=== PATIENT | female | born 1955 | race Caucasian/White ===

== ENCOUNTER 2016-08-31 18:33 | Emergency (ER) | payer OTHER ==
[~2016-08-31] VITALS: Ht 157.5 cm; Wt 57.5 kg
[2016-08-31 19:30] VITALS: Ht 157.5 cm; Wt 57.5 kg
[2016-08-31] MEDS ORDERED: ACYC800T57 PO (23:40)
[2016-08-31] MEDS ORDERED: GABA100C14 PO (23:40)
[2016-08-31] MEDS ORDERED: HYDR-906 PO (23:40)
[2016-08-31 23:54] VITALS: BP 118/73; PULSE 69; RESP 18; TEMP 98.6
--- NOTE | 2016-09-01 01:41 | ERD ---
ER Documentation Chief Complaint Date/Time DATE: 09/01/16 TIME: 01:33 Chief Complaint low back pain x 5 days HPI 61-year-old female is complaining of pain in the lower back and right lower abdomen 5 days. Describes the pain as burning and tingling type of sensation on the skin. Her clothing also makes her feel uncomfortable. She also has some nausea but no vomiting. Patient stated that she had shingles 5 years ago. This feels just like the pain she had with shingles, and in the same location. Denies fever or chills. Denies injuries. She has not taken any medications for pain at home. ROS All systems reviewed and are negative except as per history of present illness. Medications Home Meds Active Scripts Hydrocodone/Acetaminophen ([place] 5-325 Tablet) 1 Each Tablet, 1 TAB PO Q6H Y for SEVERE PAIN LEVEL 7-10, #5 TAB Prov:MARIJA GONZALEZ. SCHEDULING CLERK 08/31/16 Gabapentin* (Gabapentin*) 100 Mg Capsule, 100 MG PO TID, #30 CAP Prov:MARIJA GONZALEZ. SCHEDULING CLERK 08/31/16 Acyclovir* (Zovirax*) 800 Mg Tablet, 800 MG PO 5 TIMES DAILY for 7 Days, TAB Prov:MARIJA GONZALEZ. SCHEDULING CLERK 08/31/16 Allergies Allergies: Coded Allergies: No Known Allergy (Unverified , 08/31/16) PMhx/Soc Medical and Surgical Hx: pt denies Medical Hx, pt denies Surgical Hx History of Surgery: No Anesthesia Reaction: No Hx Neurological Disorder: No Hx Respiratory Disorders: No Hx Cardiac Disorders: No Hx Psychiatric Problems: No Hx Miscellaneous Medical Probl: No Hx Alcohol Use: No Hx Substance Use: No Hx Tobacco Use: No Smoking Status: Never smoker Physical Exam Vitals Vital Signs Date Time Temp Pulse Resp B/P Pulse Ox O2 Delivery O2 Flow Rate FiO2 08/31/16 23:54 98.6 69 18 118/73 100 Room Air 08/31/16 19:30 98.3 76 20 116/77 100 Physical Exam General impression: Well-developed, well-nourished. Alert, oriented, in no acute distress Head: Normocephalic, atraumatic. Eyes: PERRL, EOM normal. Conjunctiva not injected. Neck: Supple, nontender. No lymphanopathy. No nuchal rigidity. Respiration: Normal respiratory effort. Lungs clear to auscultate bilaterally. No wheezes, rales or rhonchi. Cardiovascular: Regular rate and rhythm. No murmurs or extra heart sounds. Abdomen: Abdomen normal to inspection. Nontender. No masses or organomegaly. Bowel sounds normal. Back: Normal to inspection. No midline spine tenderness. No CVA tenderness. Extremities: Extremities normal to inspection, nontender. ROM normal. Neuro: Mental status normal, speech normal. [employer] grossly intact. Skin: Normal turgor. No rash or lesions. Psych: Normal mood and affect. Procedures/MDM Well-appearing 61-year-old female presented to ED was burning pain on her skin 5 days. The area of her pain falls within T10-T11 dermatome. I highly suspect this is due to herpes zoster, although there is no sign of vesicular lesions at this time. I will treat her for presumed herpes zoster's and have her follow- up with her PCP. Patient appears well, stable for discharge and outpatient management. Medical decision making shared with patient and family. Education provided to patient and family. Patient and family expressed understanding of the plan. Medications on discharge: Acyclovir, gabapentin, [place]. Follow-up: Primary care provider in 2-3 days or return to ED if worse. Departure Diagnosis: Primary Impression: Neuralgia Condition: Good Patient Instructions: Shingles (Herpes Zoster) [facility] Usted se rosado hecho un examen mdico de control que le indica que no est en farzad condicin que requiera tratamiento urgente en el Departamento de Emergencia. Un estudio ms profundo y el tratamiento de gunderson condicin pueden esperar sin ningn riesgo hasta que usted sea atendida/o en el consultorio de gunderson mdico o farzad cl daren. Es responsabilidad suya arreglar farzad cynthia para el seguimiento del chidi. MANEJO DE CONDICIONES NO URGENTES EN EL FUTURO 1) Si usted tiene un mdico de atencin primaria: Usted debera llamar a gunderson mdico de atencin primaria antes de venir al departamento de emergencia. Despus de las horas de consultorio, gunderson doctor o gunderson asociado/a est disponible por telfono. El mdico o enfermero de murtaza en el servicio telefnico puede asesorarle por jennifer medio para atender el problema, o chidi contrario se puede programar farzad cynthia. 2) Si usted no tiene un mdico de atencin primaria: Llame al mdico o clnica de referencia que aparece abajo christiano las horas de consultorio para hacer farzad cynthia para que le vean. CLINICAS: [place] [id number] [phone] [facility] [phone] [place] [id number] [phone] [facility]. [place] [id number] [phone] [facility] [place] [address] [phone] [facility] [phone] [address] Additional Instructions: Llame al doctor MAANA y tiffany farzad CYNTHIA PARA DENTRO DE 2-3 BAZZI.Dgale a la secretaria que nosotros le instruimos hacer esta cynthia.Avise o llame si gunderson condicin se empeora antes de la cynthia. Regresa aqui si peor o no mejor. MARIJA GONZALEZ. CORRINE Sep 01, 2016 01:40
== END 2016-08-31 23:53 | disposition home or self-care (01) ==
LOC: FTE 18:33
DX: M79.2 Neuralgia and neuritis, unspecified (principal)
CPT/HCPCS: 99284